=== PATIENT | female | born 1980 | race Caucasian/White ===

== ENCOUNTER 2018-09-16 12:04 | Inpatient (IN) ==
[2018-09-16] MEDS ORDERED: Oxytocin 30 Units/500ml Premix 30 UNITS/500 ML BAG IV.SIG ONE (12:40)
[2018-09-16] MEDS ORDERED: Sod Chloride 0.9% Inj 1,000 ML IV.CONT PRN (12:40)
[2018-09-16] MEDS ORDERED: Naloxone Inj 0.4 MG/ML Vial IV.PUSH PRN ×2 (12:40→23:07)
[2018-09-16] MEDS ORDERED: Sodium Chlor 0.9% Inj 500 ML IV.SIG PRN (12:40)
[2018-09-16] MEDS ORDERED: fentaNYL Citrate Inj 100 MCG/2 ML Ampul IV.PUSH PRN ×2 (12:40)
--- NOTE | 2018-09-16 12:40 | ED ---
History of Present Illness Primary Care Physician: No Primary Care Physician History of Present Illness: 38-year-old 3 para 0 at 36+ weeks gestation who presents with a complaint of contractions since about midnight last night. She states that she may have had some leakage of clear fluid. She denies bleeding. Obstetrical history: Her current has been under the care of Dr. Vizcaino and she reports no complications. Her GBS was done this Wednesday. She had 1 prior elective and 1 spontaneous . Review of Systems All other systems reviewed negative except as stated in HPI PMFSH - Medical / Surgical Hx Neg / Unobtainable Medical Problems Denied: Yes - Surgical History Surgical History: Surgical History (Last Updated 09/16/18 @ 12:36 by Casey Jaffe MD) History of dilation and curettage - Social History I have reviewed the patient's Social History: Yes - Tobacco History Tobacco Use In Past 30 Days: Yes Smoking Status: Current every day smoker (10/day) - Alcohol History How Often Do You Have a Drink Containing Alcohol: Monthly or less - Substance Use History Substance History: No History of Abuse - Travel History History of Recent Travel: No Recent Travel in the [place] Within the Last 8 Weeks: No Recent Travel Out of the Country Within the Last 8 Weeks: No Medications and Allergies Allergies Allergy/AdvReac Type Severity Reaction Status Date / Time No Known Allergies Allergy Uncoded 02/13/13 21:45 Exam Narrative: GENERAL: Well-nourished, well-developed patient. SKIN: Warm and dry. HEAD: Normocephalic and atraumatic. EYES: No scleral icterus. No injection or drainage. ENT: No nasal drainage noted. Mucous membranes pink. Airway patent. NECK: Supple, trachea midline. No JVD. CARDIOVASCULAR: Regular rate and rhythm without murmurs, gallops, or rubs. RESPIRATORY: Breath sounds equal bilaterally. No accessory muscle use. ABDOMEN/GI: Abdomen soft, non-tender, bowel sounds present, no rebound, no guarding Gravid to [-] weeks size Fundal Height: [-35] GENITOURINARY: External Genitalia: intact and normal in appearance BUS glands: [Negative-] Cervix: [-] Dilatation: [1-] Effacement: [-70] Station: [--2] Presentation: [vtx-] Membranes: [ruptured with meconium fluid noted] Uterine Contractions: [-irreg] FHT's: Category: [1-] Baseline: [140-] Reactive: [-] Variability: [mod-] Decels: [-no] EXTREMITIES: No cyanosis or edema. BACK: Nontender without obvious deformity. No CVA tenderness. NEUROLOGICAL: Awake and alert. Motor and sensory grossly within normal limits. Five out of 5 muscle strength in all muscle groups. Normal speech. Assessment and Plan - Plan Assessment: 36+ week intrauterine with ruptured membranes, meconium stained fluid and irregular contractions Plan: Admit for labor management. Her GBS status has not been confirmed. Discharge Plan - Discharge Disposition Patient Disposition: 30 Still Patient - Discharge Condition Condition: Good - Physicians Team ED Provider: Casey Jaffe Primary Care Provider: Primary Care Jairi,No - Discharge Instructions Print Language: Estonian
[2018-09-16] MEDS ORDERED: Citric Acid/Sodium Citrate Liq 30 ML UDC PO SCH (12:45)
--- NOTE | 2018-09-16 12:47 | P.HPOB ---
Patient Name: Megan Nash Date of : 80 Patient Status: Inpatient Attending Provider: Silverio Gil Date: 09/16/18 12:33 Initialization Date: 09/16/18 12:33 History of Present Illness Primary Care Physician: No Primary Care Physician History of Present Illness: 38-year-old 3 para 0 at 36+ weeks gestation who presents with a complaint of contractions since about midnight last night. She states that she may have had some leakage of clear fluid. She denies bleeding. Obstetrical history: Her current has been under the care of Dr. Vizcaino and she reports no complications. Her GBS was done this Wednesday. She had 1 prior elective and 1 spontaneous . Review of Systems All other systems reviewed negative except as stated in HPI PMFSH - Medical / Surgical Hx Neg / Unobtainable Medical Problems Denied: Yes - Surgical History Surgical History: Surgical History (Last Updated 09/16/18 @ 12:36 by Casey Jaffe MD) History of dilation and curettage - Social History I have reviewed the patient's Social History: Yes - Tobacco History Tobacco Use In Past 30 Days: Yes Smoking Status: Current every day smoker (10/day) - Alcohol History How Often Do You Have a Drink Containing Alcohol: Monthly or less - Substance Use History Substance History: No History of Abuse - Travel History History of Recent Travel: No Recent Travel in the [place] Within the Last 8 Weeks: No Recent Travel Out of the Country Within the Last 8 Weeks: No Medications and Allergies Allergies Allergy/AdvReac Type Severity Reaction Status Date / Time No Known Allergies Allergy Uncoded 02/13/13 21:45 Exam Narrative: GENERAL: Well-nourished, well-developed patient. SKIN: Warm and dry. HEAD: Normocephalic and atraumatic. EYES: No scleral icterus. No injection or drainage. ENT: No nasal drainage noted. Mucous membranes pink. Airway patent. NECK: Supple, trachea midline. No JVD. CARDIOVASCULAR: Regular rate and rhythm without murmurs, gallops, or rubs. RESPIRATORY: Breath sounds equal bilaterally. No accessory muscle use. ABDOMEN/GI: Abdomen soft, non-tender, bowel sounds present, no rebound, no guarding Gravid to [-] weeks size Fundal Height: [-35] GENITOURINARY: External Genitalia: intact and normal in appearance BUS glands: [Negative-] Cervix: [-] Dilatation: [1-] Effacement: [-70] Station: [--2] Presentation: [vtx-] Membranes: [ruptured with meconium fluid noted] Uterine Contractions: [-irreg] FHT's: Category: [1-] Baseline: [140-] Reactive: [-] Variability: [mod-] Decels: [-no] EXTREMITIES: No cyanosis or edema. BACK: Nontender without obvious deformity. No CVA tenderness. NEUROLOGICAL: Awake and alert. Motor and sensory grossly within normal limits. Five out of 5 muscle strength in all muscle groups. Normal speech. Assessment and Plan - Plan Assessment: 36+ week intrauterine with ruptured membranes, meconium stained fluid and irregular contractions Plan: Admit for labor management. Her GBS status has not been confirmed. Discharge Plan - Discharge Disposition Patient Disposition: 30 Still Patient - Discharge Condition Condition: Good - Physicians Team ED Provider: Casey Jaffe Primary Care Provider: Primary Care Physici,No - Discharge Instructions Print Language: Tuvaluan
[2018-09-16] MEDS ORDERED: Penicillin G Potassium Inj 5,000,000 UNIT in Sodium Chloride 0.9% Inj 100 ML IV.SIG ONE (12:50)
[2018-09-16 13:10] LABS: Baso % (Auto) 0.3 % (0.0-2.0); Eos # (Auto) 0.1 th/mm3 (0.0-0.4); Hemoglobin 12.1 gm/dL (11.6-15.3); Lymph # (Auto) 1.8 th/mm3 (1.0-4.8); Lymph % (Auto) 17.5 % (9.0-44.0); Mean Corpuscular HGB Conc 35.5 % (32.0-36.0); Mean Corpuscular Hemoglobin 34.2 pg (27.0-34.0); Mean Corpuscular Volume 96.4 fL (80.0-100.0); Mean Platelet Volume 8.7 fL (7.0-11.0); Mono % (Auto) 9.6 % (0.0-8.0); Neut # (Auto) 7.4 th/mm3 (1.8-7.7); Neut % (Auto) 71.6 % (16.0-70.0); Platelet Count 261 th/mm3 (150-450); Red Blood Count 3.53 mil/mm3 (4.00-5.30); White Blood Count 10.3 th/mm3 (4.0-11.0)
[2018-09-16 13:28] LABS: Amphetamine Screen,Urine Neg (Neg); Barbiturate Screen,Urine Neg (Neg); Cannabinoid Screen,Urine Neg (Neg); Cocaine Screen,Urine Neg (Neg)
[2018-09-16 13:38] LABS: Opiate Screen,Urine Neg (Neg)
[2018-09-16] MEDS ORDERED: Measles/Mumps/Rubella Vaccine Inj 0.5 ML Vial SQ ONE (16:00)
[2018-09-16] MEDS ORDERED: Diphtheria/Tetanus/Pertussis Vaccine Inj 0.5 ML Syringe IM ONE (16:00)
[2018-09-16] MEDS ORDERED: Oxytocin 30 Units/500ml Premix 30 UNITS/500 ML BAG IV.SIG PRN (17:08)
[2018-09-16] MEDS ORDERED: Sodium Chloride 0.9% 2 ML Flush PRN IV.FLUSH (17:10)
[2018-09-16] MEDS: Penicillin G Potassium Inj 2,500,000 UNIT in Sodium Chlor 0.9% Inj 100 ML IV.SIG SCH ×2 (17:14→21:41)
[2018-09-16] MEDS ORDERED: Lidocaine PF 1.5% Inj 20 ML Ampule ONE (19:53)
[2018-09-16] MEDS ORDERED: fentaNYL 2MCG-Bupiv 0.125% Epi 150 ML EPIDURAL ONE (19:54)
[2018-09-16] MEDS ORDERED: fentaNYL 2MCG-Bupiv 0.125% Epi 150 ML EPIDURAL PRN (20:28)
[2018-09-16] MEDS ORDERED: fentaNYL Citrate Inj 100 MCG/2 ML Ampul EPIDURAL ONE (20:28)
[2018-09-16] MEDS ORDERED: Sodium Chloride 0.9% 2 ML Flush BID IV.FLUSH SCH (21:00)
[2018-09-16] MEDS ORDERED: Benzocaine 20% Top Spray 60 ML Can TOPICAL PRN (23:07)
[2018-09-16] MEDS ORDERED: Bisacodyl 10 MG Supp RECTAL PRN (23:07)
[2018-09-16] MEDS ORDERED: Acetaminophen 325 MG Tablet PO PRN (23:07)
[2018-09-16] MEDS ORDERED: Witch Hazel 50%/Glyderin 12.5% 40 Pad Jar RECTAL PRN (23:07)
[2018-09-16] MEDS ORDERED: Zolpidem Tartrate 5 MG Tablet PO PRN (23:07)
[2018-09-16] MEDS ORDERED: Oxytocin 30 Units/500ml Premix 30 UNITS/500 ML BAG IV.CONT PRN (23:07)
--- NOTE | 2018-09-16 23:18 | P.OBDELI ---
Weeks Gestation: 36 Patient Started Active Labor: Yes Active Labor Start Date: 09/16/18 Medical Induction of Labor: No Artificial Rupture of Membrane: No Anesthesia: None Episiotomy: none Vaginal Delivery: Normal Presentation: Occiput anterior Nuchal Cord: None Delayed Cord Clamping (45 sec): Yes Placenta: Spontaneous delivery, Intact, 3 vessel cord Repair: Vicryl running Estimated blood loss (mL): 300 Infant: Female Infant Female A Weight: 2.523 kg score (1 min): 9 score (5 min): 9 Additional Information: Nice delivery of baby Renee. She had some deep variables and thick meconium Pushed very well and delivered quickly Attempted to get a abg but we were unable to collect the blood Peds and NICU were in the room to evaluate the baby. Small left 1st degree tear near urethra repaired with 5-0 vicryl in a running fashion Placenta to lab for meconium and prematurity.
[2018-09-17] MEDS: Prenatal Vit/Ca/Iron/Folic Acid Tablet PO SCH (08:43)
[2018-09-17] MEDS: Senna/Docusate Sodium 8.6/50 MG Tablet PO SCH ×2 (08:43→21:21)
--- NOTE | 2018-09-17 16:01 | P.PNOB ---
Subjective Post day: 1 Interval history: Doing well Baby is doing well Pain is controlled Bleeding is good Tolerating diet. Objective Vital Signs/I&O: Vital Signs 09/16/18 16:01 09/16/18 16:08 09/16/18 16:09 Temperature 98.2 F Pulse Rate 85 80 Respiratory Rate 20 Blood Pressure 97/34 L 122/90 09/16/18 16:45 09/16/18 17:30 09/16/18 18:00 Temperature Pulse Rate 78 66 85 Respiratory Rate Blood Pressure 124/99 H 105/73 129/76 09/16/18 18:15 09/16/18 18:29 09/16/18 18:30 Temperature 98.0 F Pulse Rate 72 71 Respiratory Rate 18 Blood Pressure 104/73 127/75 09/16/18 18:45 09/16/18 19:00 09/16/18 19:16 Temperature Pulse Rate 66 61 66 Respiratory Rate Blood Pressure 113/75 114/74 116/69 09/16/18 20:12 09/16/18 20:25 09/16/18 20:45 Temperature 99.0 F Pulse Rate 76 77 Respiratory Rate 15 Blood Pressure 121/81 119/73 09/16/18 21:00 09/16/18 21:15 09/16/18 21:45 Temperature Pulse Rate 63 64 67 Respiratory Rate Blood Pressure 118/76 113/80 125/75 09/16/18 22:00 09/16/18 22:15 09/16/18 22:25 Temperature 98.9 F Pulse Rate 98 H 73 Respiratory Rate 18 Blood Pressure 142/89 H 112/80 09/16/18 22:50 09/16/18 23:00 09/16/18 23:13 Temperature 98.9 F Pulse Rate 94 H Respiratory Rate 18 14 Blood Pressure 125/76 09/16/18 23:15 09/16/18 23:50 09/17/18 00:05 Temperature Pulse Rate 90 91 H Respiratory Rate 17 14 Blood Pressure 128/82 120/80 09/17/18 00:20 09/17/18 05:43 09/17/18 05:46 Temperature 98.9 F Pulse Rate 96 H 88 Respiratory Rate 15 14 Blood Pressure 103/87 109/93 H 09/17/18 08:30 09/17/18 13:49 09/17/18 15:00 Temperature 98.3 F 99.0 F 98.1 F Pulse Rate 81 89 75 Respiratory Rate 16 20 Blood Pressure 105/76 115/76 107/68 Intake & Output 09/16/18 09/17/18 09/17/18 18:59 06:59 18:59 Intake Total 100 / 100 1000 / 1000 Balance 100 / 100 1000 / 1000 Weight 63.503 kg Intake: IV 100 / 100 1000 / 1000 LR 1000 mL Inj 1,000 ML @ 125 1000 / 1000 mls/hr IV.CONT .Q8H [facility] Rx#: [id number] Pfizerpen-G Inj 2,500,000 UNIT 100 / 100 In NS Inj 100 ML @ 200 mls/hr IV.SIG Q4H [facility]L Rx#:[id number] Result Diagrams: 09/16/18 12:41 Objective Remarks: GENERAL: Well-nourished, well-developed patient. CARDIOVASCULAR: Regular rate and rhythm without murmurs, gallops, or rubs. RESPIRATORY: Breath sounds equal bilaterally. No accessory muscle use. ABDOMEN/GI: Abdomen soft, non-tender. Fundus: Firm, non-tender at umbilicus. GENITOURINARY: Light to moderate bleeding. EXTREMITIES: No cyanosis or edema, non-tender, without signs of DVT. Assessment and Plan - Plan PPD #1 Doing well Nicotine patch as she is a smoker D/C home tomorrow..
[2018-09-17 20:55] VITALS: RESP 16
[2018-09-18 08:06] VITALS: BP 111/61; PULSE 75; TEMP 98.1
[2018-09-18] MEDS: Senna/Docusate Sodium 8.6/50 MG Tablet PO SCH (09:52)
[2018-09-18] MEDS: Prenatal Vit/Ca/Iron/Folic Acid Tablet PO SCH (09:52)
--- NOTE | 2018-09-18 14:27 | P.OBGPN ---
Doing well Ready to go home Baby can go home at 1600 Pain is controlled Will follow up in office in 2 weeks
== END 2018-09-18 16:05 | disposition home or self-care (01) ==
LOC: HOBED 12:04 → H2E 12:43 → H1EA 09-17 15:13
PROVIDERS: ADMIT Obstetrics & Gynecology; ATTEND Obstetrics & Gynecology